=== PATIENT | male | born 1985 | race Caucasian/White ===

== ENCOUNTER 2021-12-05 23:53 | Emergency (ER) | payer MEDICAID ==
[~2021-12-05] VITALS: Ht 175.3 cm; Wt 177.7 kg
[2021-12-06 00:10] VITALS: BP 166/100
[2021-12-06] MEDS ORDERED: ASPIRIN 325MG TABLET PO ONE (01:15)
[2021-12-06 01:25] LABS: BASOPHILS % 0.7 % (0.0-2.0); EOSINOPHILS % 0.9 % (0.0-5.0); HEMATOCRIT. 38.3 % (42.0-52.0); HEMOGLOBIN. 13.1 g/dL (14.0-18.0); MEAN CORPUSCULAR HEMOGLOBIN 33.5 pg (28.0-32.0); MEAN CORPUSCULAR VOLUME 97.9 fL (80.0-94.0); MEAN PLATELET VOLUME 8.2 fl (7.4-10.4); MONOCYTES % 8.1 % (2.0-8.0); NEUTROPHILS % 78.3 % (40.0-76.0); PLATELET 198 x1000/uL (130-400); RED BLOOD CELL COUNT 3.91 mill/uL (4.7-6.1); RED CELL DISTRIBUTION WIDTH 14.8 % (11.6-14.6)
[2021-12-06 01:34] LABS: CHLORIDE 98 mEq/L (98-107)
[2021-12-06] MEDS ORDERED: POTASSIUM CHLORIDE 20MEQ TABLET SR PO ONE (01:45)
[2021-12-06 01:48] LABS: INR 1.2; PROTHROMBIN TIME 12.7 sec (9.6-11.0)
== END 2021-12-06 03:44 | disposition home or self-care (01) ==
LOC: ER 23:53
DX: R07.89 Other chest pain (principal); E87.6 Hypokalemia; I44.4 Left anterior fascicular block; R94.31 Abnormal electrocardiogram [ECG] [EKG]; R74.01 Elevation of levels of liver transaminase levels
CPT/HCPCS: 36415; 71045; 80053; 83880; 84484; 85025; 86850; 86900; 93005; 99285